=== PATIENT | female | born 1960 | race Caucasian/White ===

== ENCOUNTER 2017-01-12 14:27 | Emergency (ER) | payer BC ==
[2017-01-12 16:17] VITALS: BP 118/73
--- NOTE | 2017-01-12 16:30 | UC ---
Throat Pain/Nasal Tyson HPI - HPI Summary HPI Summary: SINUS PAIN AND PRESSURE X 4 WEEKS, + PND, NASAL CONGESTION , COUGH , NO FEVER, - History of Current Complaint Chief Complaint: UCGeneralIllness Stated Complaint: COUGH,CHEST CONGESTION Time Seen by Provider: 01/12/17 16:02 Hx Obtained From: Patient Onset/Duration: Gradual Onset, Lasting Weeks - 4, Still Present Severity: Moderate Cough: Nonproductive Associated Signs & Symptoms: Positive: Sinus Discomfort, Nasal Discharge. Negative: Fever, Rash - Allergies/Home Medications Allergies/Adverse Reactions: Allergies Allergy/AdvReac Type Severity Reaction Status Date / Time No Known Allergies Allergy Verified 01/12/17 16:17 Home Medications: Home Medications Ranitidine HCl [Eql Acid Electronics Mechanic Maximum] 150 mg PO DAILY 01/12/17 [History Confirmed 01/12/17] PMH/Surg Hx/FS Hx/Imm Hx Endocrine History Of: Reports: Diabetes Cardiovascular History Of: Denies: Pacemaker/ICD - Surgical History Surgical History: Yes Surgery Procedure, Year, and Place: ARTHOSCOPY RIGHT KNEE 1987, TONSILECTOMY AGE 3, GALL BLADDER REMOVAL 2003. RIGHT OVARIAN CYST REMOVAL 2003, BILATERAL BREAST BIOPSY AT [facility] 2011 - Family History Known Family History: Negative: Diabetes - Social History Alcohol Use: None Substance Use Type: None Smoking Status (MU): Former Smoker When Did the Patient Quit Smoking/Using Tobacco: 2003 Review of Systems Constitutional: Negative Skin: Negative Eyes: Negative ENT: Sore Throat, Ear Ache, Nasal Discharge Respiratory: Cough Cardiovascular: Negative Gastrointestinal: Negative All Other Systems Reviewed And Are Negative: Yes Physical Exam Triage Information Reviewed: Yes Appearance: Well-Appearing, No Pain Distress, Well-Nourished Vital Signs: Initial Vital Signs Temp 98.8 F 01/12/17 16:12 Pulse 104 01/12/17 16:12 Resp 16 01/12/17 16:12 BP 118/73 01/12/17 16:12 Pulse Ox 98 01/12/17 16:12 Vital Signs Reviewed: Yes Eyes: Positive: Conjunctiva Clear ENT: Positive: Normal ENT inspection, Hearing grossly normal, Pharyngeal erythema, Nasal congestion, Nasal drainage, TMs normal Neck: Positive: Supple, Nontender, No Lymphadenopathy Respiratory: Positive: Chest non-tender, Lungs clear, Normal breath sounds Cardiovascular: Positive: RRR, No Murmur, Pulses Normal Throat Pain/Nasal Course/Dx - Differential Dx/Diagnosis Provider Diagnoses: SINUSITIS Discharge - Discharge Plan Condition: Stable Disposition: HOME Prescriptions: Azithromycin TAB* [Zithromax TAB (Z-SHIKHA) 250 mg #6 tabs] 2 tab PO .TODAY, THEN 1 DAILY #1 shikha Patient Education Materials: Sinusitis (ED) Referrals: Jihan Wolfe MD [Primary Care Provider] - If Needed
== END 2017-01-12 16:32 | disposition home or self-care (01) ==
LOC: UCCORT 14:27
DX: J32.9 Chronic sinusitis, unspecified (principal); E11.9 Type 2 diabetes mellitus without complications; Z90.49 Acquired absence of other specified parts of digestive tract; Z87.891 Personal history of nicotine dependence
CPT/HCPCS: 99211; G0463

== ENCOUNTER 2018-02-07 15:46 | Emergency (ER) | payer BC ==
--- NOTE | 2018-02-07 16:23 | UC ---
Eye Complaint HPI - HPI Summary HPI Summary: 57 yo female presents with lower lid nodule/pain. She tells me that 3 days ago her symptoms started with the left lower eyelid feeling tender - today noticed a nodule there. Says she thinks it is a stye, but has a busy weekend and wont have time to "sit with warm compresses on it". Denies vision change, drainage, fever, chills. - History of Current Complaint Stated Complaint: EYE COMPLAINT Hx Obtained From: Patient Onset/Duration: Gradual Onset Severity Initially: Mild Severity Currently: Mild Pain Intensity: 2 Pain Scale Used: 0-10 Numeric Location of Injury: Eye Lid (lower) - Allergies/Home Medications Allergies/Adverse Reactions: Allergies Allergy/AdvReac Type Severity Reaction Status Date / Time latex tape Allergy Rash Uncoded 02/07/18 16:24 Home Medications: Home Medications Atorvastatin* [Lipitor*] 40 mg PO QPM 02/07/18 [History Confirmed 02/07/18] Ergocalciferol (Vitamin D2) [Vitamin D2] 50,000 unit PO WEEKLY 02/07/18 [ History Confirmed 02/07/18] raNITIdine HCl [Ranitidine HCl] 150 mg PO QPM 02/07/18 [History Confirmed ] PMH/Surg Hx/FS Hx/Imm Hx Endocrine History: Diabetes, Dyslipidemia - Surgical History Surgical History: Yes Surgery Procedure, Year, and Place: ARTHOSCOPY RIGHT KNEE 1987, TONSILECTOMY AGE 3, GALL BLADDER REMOVAL 2003. RIGHT OVARIAN CYST REMOVAL 2003, BILATERAL BREAST BIOPSY AT [facility] 2011 - Family History Known Family History: Negative: Diabetes - Social History Occupation: Employed Full-time Lives: With Family Alcohol Use: None Substance Use Type: None Smoking Status (MU): Former Smoker When Did the Patient Quit Smoking/Using Tobacco: 2003 Review of Systems Constitutional: Negative Skin: Negative Eyes: Other - Lower lid pain/nodule ENT: Negative Respiratory: Negative Cardiovascular: Negative Neurovascular: Negative Neurological: Negative Psychological: Negative All Other Systems Reviewed And Are Negative: Yes Physical Exam - Summary Physical Exam Summary: GENERAL: NAD. WDWN. No pain distress. SKIN: No rashes, sores, lesions, or open wounds. HEENT: Head: AT/NC Eyes: Conjunctiva clear without inflammation or discharge. Lower eyelid with 2mm mildly tender nodule. No drainage. NECK: Supple. Nontender. No lymphadenopathy. CHEST: CTAB. No r/r/w. No accessory muscle use. Breathing comfortably and in no distress. CV: RRR. Without m/r/g. Pulses intact. NEURO: Alert. CN II-XII grossly intact. PSYCH: Age appropriate behavior. Triage Information Reviewed: Yes Eye Complaint Course/Dx - Course Course Of Treatment: Suspect stye of left eye. I had a long discussion with the pt that treatment is mainly supportive and it will go away on its own, however she is going to many social events this weekend and is requesting some type of treatment. Will try polytrim eye drops, but advised her that this is unlikely to provider her relief. - Differential Dx/Diagnosis Provider Diagnoses: Left eye stye Discharge - Sign-Out/Discharge Documenting (check all that apply): Discharge/Admit/Transfer - Discharge Plan Condition: Stable Disposition: HOME Prescriptions: Polymyx/Trimethoprim OPTH* [Polytrim OPHTH*] 1 drop LEFT EYE QID #1 btl Patient Education Materials: Mena (ED) Referrals: Jihan Wolfe MD [Primary Care Provider] - Additional Instructions: If you develop a fever, shortness of breath, chest pain, new or worsening symptoms - please call your PCP or go to the ED. - Billing Disposition and Condition Condition: STABLE Disposition: HOME
[2018-02-07 16:24] VITALS: BP 133/77
== END 2018-02-07 16:46 | disposition home or self-care (01) ==
LOC: UCCORT 15:46
DX: H00.025 Hordeolum internum left lower eyelid (principal); E11.9 Type 2 diabetes mellitus without complications; Z87.891 Personal history of nicotine dependence
CPT/HCPCS: 99212; G0463

== ENCOUNTER 2019-08-05 10:59 | Emergency (ER) | payer BC ==
--- OUTSIDE RECORDS SUMMARY | 2019-08-05 11:07 | XMS REPORT | Continuity of Care Document ---
:1960 External Reference #:[id number] Author Name Silvano Valdes M.D. Address [address] [place] [id number] Care Team Providers Name Role Phone Jihan Wolfe MD - Family Care Team Information Sales Engineer Account Manager [phone] Medicine Problems Active Problems Provider Date Disorder of breast Silvano Valdes M.D. Onset: 09/13/2011 Non-toxic multinodular goiter Jihan Wolfe MD Onset: 10/13/2013 Screening mammography Silvano Valdes M.D. Onset: 06/04/2018 Screening for malignant neoplasm of Silvano Valdes M.D. Onset: colon Social History Type Date Description Comments Sex Unknown Tobacco Use Start: Unknown End: Unknown Quit Smoking Status Reviewed: 06/30/04 Quit ETOH Use Rarely consumes alcohol Tobacco Use Start: Unknown End: Unknown Patient is a former smoker Recreational Drug Use Never Used Drugs Allergies, Adverse Reactions, Alerts Active Allergies Reaction Severity Comments Date NKDA 09/13/2011 Adhesives 06/05/2017 Medications Active Medications SIG Qnty Indications Ordering Provider Date Metformin HCL ER 1-2 po daily 30Tabs Unknown 08/06/2013 500mg with evening Tablets ER 24HR meal Atorvastatin Calcium 1 po qd 90tabs Jihan Wolfe, 04/28/2012 40mg MD Tablets Vitamin D take one capsule 4caps Unknown 01/29/2011 [id number] by mouthweekly, Capsules best taken with main meal with meat fat oil Aspirin Ec 1 po qod, due to Jihan Wolfe, 01/27/2010 81mg Tablets bloody nose MD DR Nexium 1 by mouth every Unknown 150mg Capsules DR ellis Vascepa Take One Capsule Unknown 1gm Capsules By Mouth Twice A Day Immunizations Description No Information Available Vital Signs Date Vital Result Comment 06/25/2019 1:56pm BP Systolic 136 mmHg BP Diastolic 82 mmHg Height 69 inches 5'9" Weight 198.00 lb BMI (Body Mass Index) 29.2 kg/m2 BSA (Body Surface Area) 2.06 m2 [place] body weight in kilograms 66 kg 06/26/2018 2:45pm BP Systolic Sitting Right Arm 125 mmHg BP Diastolic Sitting Right Arm 77 mmHg Heart Rate 98 /min Respiratory Rate 16 /min Height 69 inches 5'9" Weight 201.00 lb BMI (Body Mass Index) 29.7 kg/m2 BSA (Body Surface Area) 2.07 m2 [place] body weight in kilograms 66 kg O2 % BldC Oximetry 99 % Results Description No Information Available Procedures Date Code Description Status 06/16/2019 [id number] Mammogram Completed 05/05/2014 [id number] Mammogram Completed 04/24/2013 [id number] Mammogram Completed 04/21/2012 [id number] Mammogram Completed 08/09/2011 [id number] Mammogram Completed 09/30/2008 [id number] Bone Mineral Density Test Completed 10/31/2003 [id number] Colonoscopy Completed Medical Devices Description No Information Available Encounters Description No Information Available Assessments Date Code Description Provider 06/25/2019 Z12.31 Encounter for screening mammogram Silvano Valdes M.D. for malignant neoplasm of breast Plan of Treatment 06/26/2018 - Silvano Valdes M.D.Z12.31 Encounter for screening mammogram for malignant neoplasm of breastComments:Ultrasound reveals no additional concerns or issues. Report reviewed with her line by line. Pleased. Routine follow-up in 1 year is recommended. Continue self exam and certainly call or return if there are developments or concerns. Functional Status Functional Condition Comment Date Status Dependent with all ADL's Active Glasses Active Mental Status Description No Information Available Referrals Description No Information Available
[2019-08-05 11:29] VITALS: BP 144/71
--- NOTE | 2019-08-05 11:57 | UC ---
Respiratory Complaint HPI - HPI Summary HPI Summary: cough x 7 to 10 days cough is productive with yellow / green sputum nasal congestion , pnd, fever, chills and body aches no sob , no wheezing, - History of Current Complaint Chief Complaint: UCRespiratory Stated Complaint: ST,COUGH Time Seen by Provider: 08/05/19 11:34 Hx Obtained From: Patient Onset/Duration: Gradual Onset, Lasting Days - 10, Still Present Timing: Constant Severity Initially: Moderate Severity Currently: Moderate Pain Intensity: 7 Character: Cough: Productive Aggravating Factors: Exertion, Deep Breaths Alleviating Factors: Nothing Associated Signs And Symptoms: Positive: Fever, Chills, URI, Nasal Congestion, Hoarseness. Negative: Dyspnea, Pleuritic Chest Pain, Wheezing, Hemoptysis, Dizziness, Calf Pain, Calf Swelling - Allergies/Home Medications Allergies/Adverse Reactions: Allergies Allergy/AdvReac Type Severity Reaction Status Date / Time latex tape Allergy Rash Uncoded 08/05/19 11:19 Home Medications: Home Medications B12/Levomefolate Calcium/B-6 [Folbic Rf Tablet] 1 tab PO DAILY 08/05/19 [ History Confirmed 08/05/19] [place]-3 Fatty Acids (Nf) [Fish Oil (NF)] 1,000 mg PO DAILY 08/05/19 [History Confirmed 08/05/19] Omeprazole 40 mg PO DAILY 08/05/19 [History Confirmed 08/05/19] PMH/Surg Hx/FS Hx/Imm Hx Endocrine History: Diabetes - Surgical History Surgical History: Yes Surgery Procedure, Year, and Place: ARTHOSCOPY RIGHT KNEE 1987, TONSILECTOMY AGE 3, GALL BLADDER REMOVAL 2003. RIGHT OVARIAN CYST REMOVAL 2003, BILATERAL BREAST BIOPSY AT [facility] 2011 - Family History Known Family History: Negative: Diabetes - Social History Alcohol Use: Rare Substance Use Type: None Smoking Status (MU): Former Smoker When Did the Patient Quit Smoking/Using Tobacco: 2003 Review of Systems All Other Systems Reviewed And Are Negative: Yes Constitutional: Positive: Fever, Chills, Fatigue Skin: Positive: Negative Eyes: Positive: Negative ENT: Positive: Sore Throat, Ear Ache, Nasal Discharge, Sinus Congestion, Sinus Pain/Tenderness Respiratory: Positive: Cough Cardiovascular: Positive: Negative Is Patient Immunocompromised?: No Physical Exam Triage Information Reviewed: Yes Appearance: Well-Appearing, No Pain Distress, Well-Nourished Vital Signs: Initial Vital Signs Temp 96.6 F 08/05/19 11:24 Pulse 80 08/05/19 11:24 Resp 20 08/05/19 11:24 BP 144/71 08/05/19 11:24 Pulse Ox 100 08/05/19 11:24 Vital Signs Reviewed: Yes Eye Exam: Normal Eyes: Positive: Conjunctiva Clear ENT: Positive: Normal ENT inspection, Hearing grossly normal, Pharynx normal, Nasal congestion, Nasal drainage, TMs normal Neck: Positive: Supple, Nontender, No Lymphadenopathy Respiratory: Positive: Chest non-tender, Lungs clear, Normal breath sounds, No respiratory distress Cardiovascular: Positive: RRR, No Murmur Skin Exam: Normal Respiratory Course/Dx - Differential Dx/Diagnosis Provider Diagnosis: Bronchitis Discharge ED - Sign-Out/Discharge Documenting (check all that apply): Patient Departure All imaging exams completed and their final reports reviewed: No Studies - Discharge Plan Condition: Stable Disposition: HOME Prescriptions: Azithromycin TAB* [Zithromax TAB (Z-SHIKHA) 250 mg #6 tabs] 2 tab PO .TODAY, THEN 1 DAILY #1 shikha Benzonatate CAP* [Tessalon 100 MG CAP*] 100 mg PO TID PRN #21 cap PRN Reason: Cough Patient Education Materials: Acute Bronchitis (ED) Referrals: Jihan Wolfe MD [Primary Care Provider] - 7 Days - Billing Disposition and Condition Condition: STABLE Disposition: Home
== END 2019-08-05 11:44 | disposition home or self-care (01) ==
LOC: UCCORT 10:59
DX: J40 Bronchitis, not specified as acute or chronic (principal); R09.81 Nasal congestion; J06.9 Acute upper respiratory infection, unspecified; E11.9 Type 2 diabetes mellitus without complications; Z91.09 Other allergy status, other than to drugs and biological substances; Z87.891 Personal history of nicotine dependence
CPT/HCPCS: 99212; G0463